=== PATIENT | male | born 1950 | race Two or more races ===

== ENCOUNTER 2018-02-08 20:03 | Inpatient (IN) | payer MEDICARE, BC ==
[~2018-02-08] VITALS: Ht 167.6 cm; Wt 71.7 kg
[2018-02-09 12:00] VITALS: BP 133/66
--- NOTE | 2018-02-09 12:00 | NUR ---
GPS/RN PATIENT ADMITTED ON A 5150 HOLD FOR DTS, UNDER THE CARE OF DR HENRIQUEZ AND DR JIMENEZ. BOTH DR'S AWARE OF NEW ADMISSION AND MEDS RECONCILED IN SYSTEM. PER HOLD PATIENT WALKED INTO THE [employer] [facility] AND ATTEMPTED TO LOAD A FIREARM AND ADMITTED HE WANTED TO KILL HIMSELF. UPON FACE TO FACE ASSESSMENT, PATIENT IS ALERT AND ORIENTED X 3, ANXIOUS WITH BLUNTED AFFECT AND DEPRESSED MOOD. PATIENT IS SELECTIVE WITH SIGNING ADMISSION PAPERWORK, VITAL SIGNS STABLE, PATIENT REFUSED SKIN ASSESSMENT AND REFUSED TO ALLOW STAFF TO TAKE PICTURE OF HIS FACE. PATIENT DENIES ANY SI/HI IDEATION AT THIS TIME. BELONGINGS, VALUABLES AND MEDICATION COLLECTED. AT THIS TIME PATIENT IS IN DINING ROOM ON A 1:1 STATUS, NO AGITATION NO MAJOR DISTRESS NOTED,ENCOURAGED TO VERBALIZE FEELINGS AND CONCERNS, WILL CONTINUE TO MONITOR Q 15 MIN FOR SAFETY AND BEHAVIOR. Addendum: 02/09/18 at 1854 by MCKINLEY ALBARADO RN PATIENT NOT ON A 1:1 AT THIS TIME.
[2018-02-09] MEDS ORDERED: MAG HYDROX/AL HYDROX/SIMETH 30 ML UDC PO PRN (12:30)
[2018-02-09] MEDS ORDERED: ACETAMINOPHEN 325 MG TABLET PO PRN (12:30)
[2018-02-09] MEDS ORDERED: LAMO100T2 PO (14:21)
[2018-02-09] MEDS ORDERED: FLUV50TA3 PO (14:21)
[2018-02-09] MEDS ORDERED: ROSU10TA PO (14:21)
[2018-02-09] MEDS ORDERED: OXCA300T15 PO ×2 (14:21)
[2018-02-09] MEDS ORDERED: LEVO75TA7 PO (14:21)
[2018-02-09] MEDS ORDERED: VENL75CA56 PO (14:21)
[2018-02-09] MEDS ORDERED: ALLO300T2 PO (14:21)
[2018-02-09] MEDS ORDERED: OMEP20TA5 PO (14:21)
[2018-02-09 15:53] VITALS: BP 119/69
[2018-02-09] MEDS: LamoTRIgine 25 MG TABLET PO SCH (17:55)
[2018-02-09 19:48] VITALS: BP 111/57
--- NOTE | 2018-02-09 20:12 | NUR ---
GPS RN NOTE: PATIENT VERBALIZED DEPRESSION AND SUICIDAL THOUGHT. ENCOURAGED TO VERBALIZE FEELING. PATIENT CONTRACTED TO SAFETY. WILL CONTINUE TO MONITOR [id number] FOR SAFETY
[2018-02-09] MEDS: FLUVOXAMINE MALEATE 50 MG TABLET PO SCH (21:19)
[2018-02-09] MEDS: OXCARBAZEPINE 150 MG TABLET PO SCH (21:20)
[2018-02-09] MEDS: ZOLPIDEM TARTRATE 5 MG TABLET PO PRN (21:21)
[2018-02-10] MEDS: LEVOTHYROXINE SODIUM 75 MCG TABLET PO SCH (07:55)
[2018-02-10] MEDS: LamoTRIgine 25 MG TABLET PO SCH (07:55)
[2018-02-10] MEDS: PANTOPRAZOLE 40 MG TABLET.DR PO SCH (07:55)
[2018-02-10] MEDS: OXCARBAZEPINE 150 MG TABLET PO SCH ×2 (07:57→20:38)
[2018-02-10 08:00] VITALS: BP 115/65
[2018-02-10 08:10] LABS: ALBUMIN 3.7 g/dL (3.4-5.0); BILIRUBIN,TOTAL 0.6 mg/dL (0.2-1.0); CALCIUM, SERUM 10.2 mg/dL (8.5-10.1); CREATININE 0.9 mg/dL (0.6-1.3); TOTAL PROTEIN, SERUM 6.7 g/dL (6.4-8.2)
[2018-02-10] MEDS: ALLOPURINOL 100 MG TABLET PO SCH (09:19)
--- NOTE | 2018-02-10 11:10 | NUR ---
GPS/RN PATIENT DENIES SI AT THIS TIME AND IS WILLING TO CONTRACT FOR SAFETY. SIGNED SAFETY CONTRACT. WILL CONTINUE TO MONITOR Q 15 MIN FOR SAFETY AND BEHAVIOR.
--- NOTE | 2018-02-10 13:52 | NUR ---
Initial Discharge Plan: Pt resides at [address] [place] [address] ([phone]) with his current . Per pt, he would like to go to a long term facility or an assisted living to receive more assistance. MISHEL will work with the pt, the family and the MD regarding appropriate discharge plans. SW will form a safe and proper discharge plan.
[2018-02-10] MEDS: MAGNESIUM HYDROXIDE 30 ML UDC PO PRN (14:51)
[2018-02-10 16:00] VITALS: BP 126/73
[2018-02-10 20:08] VITALS: BP 128/76
[2018-02-10] MEDS: FLUVOXAMINE MALEATE 50 MG TABLET PO SCH (21:35)
[2018-02-10] MEDS: ATORVASTATIN 10 MG TABLET PO SCH (21:36)
[2018-02-10] MEDS: ZOLPIDEM TARTRATE 5 MG TABLET PO PRN (21:37)
--- NOTE | 2018-02-10 21:38 | NUR ---
AMBIEN 5 MG TAB 1 PO GIVEN FOR SLEEP PER PATIENT'S REQUEST
[2018-02-11] MEDS: LORAZEPAM 0.5 MG TABLET PO PRN (06:00)
--- NOTE | 2018-02-11 06:00 | NUR ---
Ativan 1 mg tab po given for anxiety per patient's request.
[2018-02-11 08:00] VITALS: BP 133/68
[2018-02-11] MEDS: PANTOPRAZOLE 40 MG TABLET.DR PO SCH (08:02)
[2018-02-11] MEDS: ALLOPURINOL 100 MG TABLET PO SCH (08:02)
[2018-02-11] MEDS: LamoTRIgine 25 MG TABLET PO SCH (08:03)
[2018-02-11] MEDS: OXCARBAZEPINE 150 MG TABLET PO SCH ×2 (08:03→21:27)
[2018-02-11] MEDS: LEVOTHYROXINE SODIUM 75 MCG TABLET PO SCH (08:03)
--- NOTE | 2018-02-11 13:46 | NUR ---
SW spoke to Irasema ([phone]) regarding potential placement at [facility].
--- NOTE | 2018-02-11 13:52 | NUR ---
MISHEL spoke to pt's , Prema Mas, and informed her about the initial discharge plan and what his current status is like. Addendum: 02/24/18 at 1202 by ASHLIE FLORENTINO ([phone])
[2018-02-11 15:54] VITALS: BP 141/76
[2018-02-11] MEDS: MAGNESIUM HYDROXIDE 30 ML UDC PO PRN (17:55)
--- NOTE | 2018-02-11 17:56 | NUR ---
NURSING NOTE PT STATING HE IS CONSTIPATED, REQUESTED MOM, ADMINISTERED MOM PER PT REQUEST. WILL CONTINUE TO MONITOR.
[2018-02-11 20:25] VITALS: BP 152/75
[2018-02-11] MEDS: FLUVOXAMINE MALEATE 50 MG TABLET PO SCH (21:27)
[2018-02-11] MEDS: ATORVASTATIN 10 MG TABLET PO SCH (21:27)
[2018-02-12 08:16] VITALS: BP 145/84
[2018-02-12] MEDS: LEVOTHYROXINE SODIUM 75 MCG TABLET PO SCH (08:21)
[2018-02-12] MEDS: LamoTRIgine 25 MG TABLET PO SCH ×3 (08:21→10:12)
[2018-02-12] MEDS: PANTOPRAZOLE 40 MG TABLET.DR PO SCH (08:21)
[2018-02-12] MEDS: OXCARBAZEPINE 150 MG TABLET PO SCH ×2 (08:22→21:32)
[2018-02-12] MEDS: ALLOPURINOL 100 MG TABLET PO SCH (08:22)
[2018-02-12] MEDS: MAGNESIUM HYDROXIDE 30 ML UDC PO PRN (10:16)
--- NOTE | 2018-02-12 10:18 | NUR ---
GPS/RN PATIENT REQUESTED MOM FOR CONSTIPATION, ADMINISTERED MILK OF MAGNESIA, WILL CONTINUE TO MONITOR.
--- NOTE | 2018-02-12 13:00 | NUR ---
GPS/RN PATIENT FOUND IN ROOM BY ASSOCIATE MARKETING MANAGER WITH OVERHEAD LIGHT BULB IN HAND AND ON HIS KNEES. PATIENT NOTED WITH SELF INFLICTED SUPERFICIAL CUTS TO HIS NECK. RAPID RESPONSE CALLED TO UNIT, PATIENT IN STABLE CONDITION. CHARGE NURSE, APPLICATION SOFTWARE DEVELOPER, DR BADILLO, DR FUENTES AND PATIENTS WERE MADE AWARE OF THE INCIDENT. BACITRACIN WAS ORDERED AND SUPERFICIAL CUTS COVERED WITH 4X4. PER DR BADILLO, PATIENT IS NOW ON A 1:1 STATUS. WILL CONTINUE TO MONITOR Q 15 MIN FOR SAFETY AND BEHAVIOR. VITALS: 140/86, 77, 19, 100
--- NOTE | 2018-02-12 13:15 | NUR ---
GPS/RN DR BADILLO WAS NOTIFIED AND PROVIDED WITH DETAILS OF PATIENT'S SUICIDE ATTEMPT AND SELF INFLICTED SUPERFICIAL CUTS TO HIS NECK. PER DR BADILLO PATIENT IS TO BE PUT ON A 1:1 STATUS.
[2018-02-12 13:25] VITALS: BP 106/72
[2018-02-12 13:30] VITALS: BP 140/86
[2018-02-12] MEDS: BACI/NEOM/POLY B OINT PKT 1 UDPKT PACKET TP SCH ×2 (14:00→18:04)
--- NOTE | 2018-02-12 14:04 | NUR ---
GPS/RN PATIENT STATED THAT HE HAD A TETANUS SHOT LAST YEAR BUT HE DOES NOT RECALL WHAT MONTH.
--- NOTE | 2018-02-12 14:30 | NUR ---
GPS/RN PATIENT IN ROOM, CONTINUES TO BE ACTIVELY SUICIDAL. STATING " I SHOULD HAVE DONE IT HARDER, I WANT OT GO BACK AND DO IT OVER" . ENCOURAGED TO VERBALIZE FEELINGS AND CONCERNS, 1:1 SITTER AT SIDE, WILL CONTINUE TO MONITOR Q 15 MIN FOR SAFETY AND BEHAVIOR
[2018-02-12] MEDS: LORAZEPAM 0.5 MG TABLET PO PRN (14:51)
--- NOTE | 2018-02-12 14:52 | NUR ---
GPS/RN PATIENT IS EXTREMELY ANXIOUS, REPEATING HIMSELF OVER AND OVER, STATING" I WANT TO GO BACK, I WANT TO GO BACK" , ADMINISTERED ATIVAN 1 MG , SITTER AR SIDE, WILL CONTINUE TO MONITOR.
--- NOTE | 2018-02-12 15:00 | NUR ---
GPS/RN DR FUENTES MADE AWARE OF PATIENT'S SELF INFLICTED SUPERFICIAL CUTS TO THE NECK. NO NEW ORDERS AT THIS TIME.
--- NOTE | 2018-02-12 15:05 | NUR ---
GPS/RN PATIENT'S BISI GERARD WAS CONTACTED AND IS AWARE THAT PATIENT ATTEMPTED TO CUT HIS NECK WITH LIGHT BULB. Addendum: 02/12/18 at 1521 by MCKINLEY ALBARADO RN AWARE OF SELF INFLICTED SUPERFICIAL CUTS TO THE NECK.
[2018-02-12 16:00] VITALS: BP 136/69
[2018-02-12] MEDS: ESCITALOPRAM OXALATE (10 MG) 10 MG TABLET PO SCH (16:42)
--- NOTE | 2018-02-12 17:15 | NUR ---
GPS/RN PATIENT IS EXTREMELY ANXIOUS AND CONTINUES VOICING SUICIDAL IDEATION, STATING "IM GOING TO DO IT" "I WANT TO GO BACK AND FINISH IT". PAGED DR BADILLO TO OBTAIN ORDERS FOR EMERGENCY SHOT. AWAITING CALL BACK.SITTER AT SIDE, WILL CONTINUE TO MONITOR Q 15 MIN FOR SAFETY AND BEHAVIOR,
--- NOTE | 2018-02-12 18:20 | NUR ---
GPS/RN PICTURES TAKEN OF RIGHT AND LEFT SIDE OF PATIENTS NECK. PLACED IN CHART.
--- NOTE | 2018-02-12 19:30 | NUR ---
GPS RN NOTE, RECEIVED PATIENT AWAKE AND IN BED, NO S/S OR COMPLAINTS OF PAIN AT THIS TIME. PATIENT DISPLAYING NO S/S OF APPARENT DISTRESS AT THIS TIME. PATIENT BREATHING IS UNLABORED WITH EQUAL RISE AND FALL OF THE CHEST. PATIENT ALERT AND ORIENTED X 3 WITH A SPO2 94%. PATIENT HAS A ONE TO ONE SITTER FOR SI PLAN. PATIENT IS MED COMPLIANT, DISORGANIZED, DEPRESSED, ISOLATIVE, COOPERATIVE, NEEDS REORIENTATION. PATIENT DENIES SUICIDE IDEATIONS AND HOMICIDAL IDEATIONS AT THIS TIME. PATIENT ASSISTED WITH TURNING AND REPOSITIONING Q2HR AND PRN FOR COMFORT AND CIRCULATION. PATIENT HAS NO NEEDS AT THIS TIME. PATIENT EDUCATED ON THE USE OF THE CALL SY. PATIENT BED SIDE RAILS UP X2 FOR SAFETY, BED IS LOCKED AND LOW WILL CONTINUE TO MONITOR AND MAINTAIN AND MAINTAIN SAFETY.
[2018-02-12 20:31] VITALS: BP 135/71
[2018-02-12] MEDS: ATORVASTATIN 10 MG TABLET PO SCH (21:32)
[2018-02-12] MEDS: QUETIAPINE FUMARATE 100 MG TABLET PO SCH (21:32)
[2018-02-13 08:00] VITALS: BP 137/70
[2018-02-13] MEDS: ESCITALOPRAM OXALATE (10 MG) 10 MG TABLET PO SCH (08:29)
[2018-02-13] MEDS: LEVOTHYROXINE SODIUM 75 MCG TABLET PO SCH (08:29)
[2018-02-13] MEDS: ALLOPURINOL 100 MG TABLET PO SCH (08:30)
[2018-02-13] MEDS: LamoTRIgine 25 MG TABLET PO SCH (08:31)
[2018-02-13] MEDS: PANTOPRAZOLE 40 MG TABLET.DR PO SCH (08:33)
[2018-02-13] MEDS: OXCARBAZEPINE 150 MG TABLET PO SCH ×2 (08:33→21:09)
--- NOTE | 2018-02-13 11:00 | NUR ---
gps avionics systems integration specialist: psychotherapist dr. ashley dominguez at bedside. pt verbalized suicidal ideation. sitter at bedside. will continue to monitor.
[2018-02-13] MEDS: BACI/NEOM/POLY B OINT PKT 1 UDPKT PACKET TP SCH ×2 (11:09→17:00)
[2018-02-13] MEDS: LORAZEPAM 0.5 MG TABLET PO PRN (11:09)
--- NOTE | 2018-02-13 13:30 | NUR ---
SW spoke to Mora ([phone]) from [facility] which stated that they will be accepting the pt upon his discharge.
[2018-02-13 15:55] VITALS: BP 146/81
[2018-02-13 19:59] VITALS: BP 139/74
[2018-02-13] MEDS: QUETIAPINE FUMARATE 100 MG TABLET PO SCH (21:09)
[2018-02-13] MEDS: ATORVASTATIN 10 MG TABLET PO SCH (21:09)
--- NOTE | 2018-02-14 07:15 | NUR ---
GPS NOTE. PT SEEN PICKING AT WOUND SITE. PER PT. HE WAS MAKING SURE THAT HE DOESN'T MISS NEXT TIME. PT. IS ALERT ORIENTED X3, WITH LIMITED EYE CONTACT. CLEAR SPEECH. DEPRESSED MOOD WITH FLAT AFFECT. ENDORSE SI WITH PLAN. DENIED HI. NO NEW WOUNDS NOTED TO THE PATIENT NECK AREA. THE PATIENT WAS ABLE TO CONTRACT FOR SAFETY. WILL CONTINUE TO MONITOR FOR SAFETY.
[2018-02-14 08:00] VITALS: BP 122/73
[2018-02-14] MEDS ORDERED: LamoTRIgine 100 MG TABLET PO SCH (09:00)
[2018-02-14] MEDS: ALLOPURINOL 100 MG TABLET PO SCH (09:33)
[2018-02-14] MEDS: OXCARBAZEPINE 150 MG TABLET PO SCH ×2 (09:33→21:31)
[2018-02-14] MEDS: PANTOPRAZOLE 40 MG TABLET.DR PO SCH (09:33)
[2018-02-14] MEDS: BACI/NEOM/POLY B OINT PKT 1 UDPKT PACKET TP SCH ×2 (09:33→17:20)
[2018-02-14] MEDS: LEVOTHYROXINE SODIUM 75 MCG TABLET PO SCH (09:33)
[2018-02-14] MEDS: ESCITALOPRAM OXALATE (10 MG) 10 MG TABLET PO SCH (10:11)
[2018-02-14] MEDS: LORAZEPAM 0.5 MG TABLET PO PRN (10:11)
[2018-02-14] MEDS: LamoTRIgine 100 MG TABLET PO SCH (10:40)
--- NOTE | 2018-02-14 14:30 | NUR ---
PT.SEVERAL TIMES TALKING ABOUT DOING A BETTER JOB NEXT TIME.SITTER AT BEDSIDE CONTINUALLY.
[2018-02-14 16:00] VITALS: BP 149/64
[2018-02-14] MEDS: MAGNESIUM HYDROXIDE 30 ML UDC PO PRN (18:43)
--- NOTE | 2018-02-14 18:59 | NUR ---
MED. FOR CONSTIPATION WITH MOM.
[2018-02-14 20:00] VITALS: BP 125/73
[2018-02-14] MEDS: ATORVASTATIN 10 MG TABLET PO SCH (21:30)
[2018-02-14] MEDS ORDERED: QUETIAPINE FUMARATE 100 MG TABLET PO SCH (22:00)
--- NOTE | 2018-02-15 00:29 | NUR ---
Pt has been selectively mute mostly, anhedonic, withdrawn, unkempt, & with flat affect but fair insight. He is being closely monitored on a 1:1 basis due to self inflicted cuts recently.
[2018-02-15 08:00] VITALS: BP 123/79
[2018-02-15] MEDS: LORAZEPAM 0.5 MG TABLET PO PRN ×2 (08:49→17:05)
[2018-02-15] MEDS: LEVOTHYROXINE SODIUM 75 MCG TABLET PO SCH (08:49)
[2018-02-15] MEDS: PANTOPRAZOLE 40 MG TABLET.DR PO SCH (08:49)
[2018-02-15] MEDS: LamoTRIgine 100 MG TABLET PO SCH (08:49)
[2018-02-15] MEDS: ESCITALOPRAM OXALATE (10 MG) 10 MG TABLET PO SCH (08:50)
[2018-02-15] MEDS: ALLOPURINOL 100 MG TABLET PO SCH (08:50)
[2018-02-15] MEDS: OXCARBAZEPINE 150 MG TABLET PO SCH ×2 (08:50→21:02)
[2018-02-15] MEDS: BACI/NEOM/POLY B OINT PKT 1 UDPKT PACKET TP SCH ×2 (09:02→16:09)
[2018-02-15 16:07] VITALS: BP 128/79
[2018-02-15 19:57] VITALS: BP 130/73
[2018-02-15] MEDS: ATORVASTATIN 10 MG TABLET PO SCH (21:02)
[2018-02-15] MEDS: QUETIAPINE FUMARATE 100 MG TABLET PO SCH (21:24)
[2018-02-16 08:00] VITALS: BP 117/75
[2018-02-16] MEDS: ALLOPURINOL 100 MG TABLET PO SCH (09:08)
[2018-02-16] MEDS: OXCARBAZEPINE 150 MG TABLET PO SCH ×2 (09:08→21:07)
[2018-02-16] MEDS: LamoTRIgine 100 MG TABLET PO SCH (09:09)
[2018-02-16] MEDS: PANTOPRAZOLE 40 MG TABLET.DR PO SCH (09:09)
[2018-02-16] MEDS: LEVOTHYROXINE SODIUM 75 MCG TABLET PO SCH (09:09)
[2018-02-16] MEDS: BACI/NEOM/POLY B OINT PKT 1 UDPKT PACKET TP SCH (09:10)
--- NOTE | 2018-02-16 09:50 | NUR ---
WOUND CARE CONSULT: PT PRESENTS WITH DRY SCRATCHES ON NECK. NO DRAINAGE OR TENDERNESS NOTED. PT HAS WIGGINS. PT ALSO STATES HAS ACNE ON HIS BACK. DEFER TO MD. WILL SEE PRN. CURRENT [facility]AN [facility] SCORE IS 22.
[2018-02-16] MEDS: ESCITALOPRAM OXALATE (10 MG) 10 MG TABLET PO SCH (11:10)
[2018-02-16] MEDS: LORAZEPAM 1 MG TABLET PO PRN ×2 (11:49→21:41)
--- NOTE | 2018-02-16 11:49 | NUR ---
RN NOTES ADMINISTERED ATIVAN 1 MG PO PRN FOR ANXIETY, VERY DEPRESS, ISOLATIVE. PATIENT COMPLAINING OF NO ENERGY, LYING IN THE BED, PATIENT REFUSED SI AT THIS TIME, 1:1 SITTER NEXT TO THE BED FOR SAFETY, CONTINUED MONITORING.
--- NOTE | 2018-02-16 12:44 | NUR ---
RN NOTES PATIENT VERY ANXIOUS, PARANOID, AGGRESSIVE, YELLING. MEDICATION WERE ADMINISTERED FOR ANXIETY NOT EFFECTIVE. PATIENT WAS YELLING, TRYING TO THROUGH CHAIR TO THE WINDOW. CALLED DR BADILLO AND GET ORDER ZYPREXA 10 MG/ML IM X1 NOW, ORDER TAKEN AND CARRIED OUT.
[2018-02-16] MEDS ORDERED: OLANZAPINE 10 MG VIAL IM ONE (13:00)
--- NOTE | 2018-02-16 13:05 | NUR ---
RN NOTES ADMINISTERED ZYPREXA 10 MG/ML IM INJECTION RIGHT OUTER GLUTEAL AREA. PER DR BADILLO ORDER. ENCOURAGED PATIENT TO EXPRESS FEELINGS AND CONCERNS. PATIENT STAE " MY MIND IS FOCUSED ONE THING GO AND FINISH CUTTING MY SELF, I CAN NOT GET READ OF IT, I AM SICK AND TIERED". CALL SY NEAR TO REACH, 1:1 SITTER NEXT TO THE BED FOR SAFETY.
--- NOTE | 2018-02-16 14:14 | NUR ---
RN NOTES PATIENT RESTING IN THE BED AT THIS TIME, QUIET, NO ACUTE DISTRESS, BUT STILL ISOLATIVE, ENCOURAGED TO ATTEND GROUP THERAPY. SAFETY PRECAUTION MAINTAINED ALL THE TIME WITH 1:1 SITTER.
[2018-02-16 16:00] VITALS: BP 128/68
[2018-02-16] MEDS: NEOMY SULF/BACITRAC ZN/POLY 15 GM TUBE TP SCH (17:30)
[2018-02-16 19:40] VITALS: BP 101/41
[2018-02-16] MEDS: ATORVASTATIN 10 MG TABLET PO SCH (21:08)
[2018-02-16] MEDS: QUETIAPINE FUMARATE 100 MG TABLET PO SCH (21:08)
--- NOTE | 2018-02-16 21:48 | NUR ---
GPS-RN PATIENT IS ANXIOUS AND RESTLESS, VSS. ADMINISTERED ATIVAN 1MG PO ORDERED. WILL CONTINUE TO MONITOR.
[2018-02-17 08:00] VITALS: BP 117/65
[2018-02-17] MEDS: LEVOTHYROXINE SODIUM 75 MCG TABLET PO SCH (08:48)
[2018-02-17] MEDS: PANTOPRAZOLE 40 MG TABLET.DR PO SCH (08:48)
[2018-02-17] MEDS: OXCARBAZEPINE 150 MG TABLET PO SCH ×2 (08:48→21:33)
[2018-02-17] MEDS: ESCITALOPRAM OXALATE (10 MG) 10 MG TABLET PO SCH (08:48)
[2018-02-17] MEDS: ALLOPURINOL 100 MG TABLET PO SCH (08:48)
[2018-02-17] MEDS: LamoTRIgine 100 MG TABLET PO SCH (08:48)
[2018-02-17] MEDS: NEOMY SULF/BACITRAC ZN/POLY 15 GM TUBE TP SCH ×3 (08:52→17:00)
[2018-02-17 16:00] VITALS: BP 136/66
[2018-02-17] MEDS: QUETIAPINE FUMARATE 25 MG TABLET PO SCH (16:21)
[2018-02-17 20:33] VITALS: BP 118/66
[2018-02-17] MEDS: ATORVASTATIN 10 MG TABLET PO SCH (21:32)
[2018-02-17] MEDS: QUETIAPINE FUMARATE 100 MG TABLET PO SCH (21:32)
--- NOTE | 2018-02-17 22:08 | NUR ---
GPS NOTES. PT. LAYING IN BED, RESTING COMFORTABLY. NO SIGNS OF DISTRESS NOTED. PER DR. GABINO DINERO CHECK PT. VS UNTIL TOMORROW MORNING. Addendum: 02/17/18 at 2222 by NEAL ROSS RN WRONG PATIENT. DISREGARD
[2018-02-18 08:00] VITALS: BP 114/66
[2018-02-18] MEDS: LamoTRIgine 100 MG TABLET PO SCH (09:02)
[2018-02-18] MEDS: ESCITALOPRAM OXALATE (10 MG) 10 MG TABLET PO SCH (09:02)
[2018-02-18] MEDS: PANTOPRAZOLE 40 MG TABLET.DR PO SCH (09:03)
[2018-02-18] MEDS: NEOMY SULF/BACITRAC ZN/POLY 15 GM TUBE TP SCH ×2 (09:03→16:41)
[2018-02-18] MEDS: LEVOTHYROXINE SODIUM 75 MCG TABLET PO SCH (09:03)
[2018-02-18] MEDS: OXCARBAZEPINE 150 MG TABLET PO SCH ×2 (09:03→21:30)
[2018-02-18] MEDS: QUETIAPINE FUMARATE 25 MG TABLET PO SCH ×2 (09:03→16:41)
[2018-02-18] MEDS: ALLOPURINOL 100 MG TABLET PO SCH (09:03)
[2018-02-18 16:00] VITALS: BP 124/70
[2018-02-18] MEDS: LORAZEPAM 1 MG TABLET PO PRN (18:24)
[2018-02-18 20:21] VITALS: BP 139/74
[2018-02-18] MEDS: QUETIAPINE FUMARATE 100 MG TABLET PO SCH (21:30)
[2018-02-18] MEDS: ATORVASTATIN 10 MG TABLET PO SCH (21:30)
[2018-02-18] MEDS: MAGNESIUM HYDROXIDE 30 ML UDC PO PRN (22:09)
[2018-02-19 08:00] VITALS: BP 135/72
[2018-02-19] MEDS: ALLOPURINOL 100 MG TABLET PO SCH (08:28)
[2018-02-19] MEDS: PANTOPRAZOLE 40 MG TABLET.DR PO SCH (08:29)
[2018-02-19] MEDS: QUETIAPINE FUMARATE 25 MG TABLET PO SCH ×3 (08:29→16:36)
[2018-02-19] MEDS: OXCARBAZEPINE 150 MG TABLET PO SCH ×2 (08:29→20:33)
[2018-02-19] MEDS: LamoTRIgine 100 MG TABLET PO SCH (08:29)
[2018-02-19] MEDS: ESCITALOPRAM OXALATE (10 MG) 10 MG TABLET PO SCH (08:29)
[2018-02-19] MEDS: LEVOTHYROXINE SODIUM 75 MCG TABLET PO SCH (08:29)
[2018-02-19] MEDS: NEOMY SULF/BACITRAC ZN/POLY 15 GM TUBE TP SCH ×2 (09:00→17:51)
[2018-02-19] MEDS: LORAZEPAM 1 MG TABLET PO PRN (12:52)
[2018-02-19] MEDS: MAGNESIUM HYDROXIDE 30 ML UDC PO PRN (12:52)
--- NOTE | 2018-02-19 12:58 | NUR ---
GPS/RN PATIENT IS ANXIOUS, RESTLESS AND AGITATED WITH DEPRESSED MOOD, ADMINISTERED ATIVAN 1MG , WILL CONTINUE TO MONITOR.
[2018-02-19 16:11] VITALS: BP 117/71
[2018-02-19 20:00] VITALS: BP 127/67
[2018-02-19] MEDS: QUETIAPINE FUMARATE 100 MG TABLET PO SCH (21:09)
[2018-02-19] MEDS: ATORVASTATIN 10 MG TABLET PO SCH (21:09)
[2018-02-20] MEDS: LEVOTHYROXINE SODIUM 75 MCG TABLET PO SCH (07:25)
[2018-02-20] MEDS: PANTOPRAZOLE 40 MG TABLET.DR PO SCH (07:26)
[2018-02-20 08:27] VITALS: BP 114/69
[2018-02-20] MEDS: LamoTRIgine 100 MG TABLET PO SCH (08:37)
[2018-02-20] MEDS: ESCITALOPRAM OXALATE (10 MG) 10 MG TABLET PO SCH (08:37)
[2018-02-20] MEDS: OXCARBAZEPINE 150 MG TABLET PO SCH ×2 (08:37→20:54)
[2018-02-20] MEDS: NEOMY SULF/BACITRAC ZN/POLY 15 GM TUBE TP SCH ×2 (08:38→16:07)
[2018-02-20] MEDS: ALLOPURINOL 100 MG TABLET PO SCH (08:38)
[2018-02-20] MEDS: QUETIAPINE FUMARATE 25 MG TABLET PO SCH ×3 (08:38→16:07)
[2018-02-20] MEDS: LORAZEPAM 1 MG TABLET PO PRN (09:43)
[2018-02-20] MEDS: DOCUSATE SODIUM 100 MG CAPSULE PO SCH (11:06)
[2018-02-20 16:21] VITALS: BP 135/66
[2018-02-20 20:00] VITALS: BP 130/73
[2018-02-20] MEDS: QUETIAPINE FUMARATE 100 MG TABLET PO SCH (21:08)
[2018-02-20] MEDS: ATORVASTATIN 10 MG TABLET PO SCH (21:08)
[2018-02-20] MEDS: SENNOSIDES/DOCUSATE SODIUM 1 TAB TABLET PO SCH (22:00)
--- NOTE | 2018-02-21 07:03 | NUR ---
PATIENT QUIET AND CALM THE WHOLE SHIFT LAST NIGHT
[2018-02-21 08:00] VITALS: BP 118/69
[2018-02-21] MEDS: DOCUSATE SODIUM 100 MG CAPSULE PO SCH (08:21)
[2018-02-21] MEDS: LEVOTHYROXINE SODIUM 75 MCG TABLET PO SCH (08:21)
[2018-02-21] MEDS: PANTOPRAZOLE 40 MG TABLET.DR PO SCH (08:21)
[2018-02-21] MEDS: ESCITALOPRAM OXALATE (10 MG) 10 MG TABLET PO SCH (08:21)
[2018-02-21] MEDS: QUETIAPINE FUMARATE 25 MG TABLET PO SCH ×3 (08:21→16:12)
[2018-02-21] MEDS: OXCARBAZEPINE 150 MG TABLET PO SCH ×2 (08:22→21:32)
[2018-02-21] MEDS: LamoTRIgine 100 MG TABLET PO SCH (08:22)
[2018-02-21] MEDS: ALLOPURINOL 100 MG TABLET PO SCH (08:22)
[2018-02-21] MEDS: NEOMY SULF/BACITRAC ZN/POLY 15 GM TUBE TP SCH ×2 (09:22→16:13)
[2018-02-21] MEDS: LORAZEPAM 1 MG TABLET PO PRN (15:40)
--- NOTE | 2018-02-21 15:44 | NUR ---
GPS/RN-NOTES PATIENT REQUESTING FOR ATIVAN,STATED" I'M VERY ANXIOUS I NEED ATIVAN". ATIVAN 1MG P.O GIVEN PRN ORDER. WILL CONT. 1:1 MONITORING FOR SAFETY AND BEHAVIOR.
[2018-02-21 16:11] VITALS: BP 117/68
--- NOTE | 2018-02-21 16:45 | NUR ---
GPS/RN-NOTES PATIENT LAYING IN HIS BED, CALM , INTERMITTENTLY SLEEPING. STILL ON 1:1 MONITORING FOR SAFETY AND BEHAVIOR.
[2018-02-21 20:00] VITALS: BP 140/68
[2018-02-21] MEDS: QUETIAPINE FUMARATE 100 MG TABLET PO SCH (21:32)
[2018-02-21] MEDS: SENNOSIDES/DOCUSATE SODIUM 1 TAB TABLET PO SCH (21:33)
[2018-02-21] MEDS: ATORVASTATIN 10 MG TABLET PO SCH (21:33)
--- NOTE | 2018-02-22 01:11 | NUR ---
Pt remains selectively mute mostly, anhedonic, withdrawn, unkempt, & with flat affect but fair insight. He is being closely monitored on a 1:1 basis due to suicidal urges .
[2018-02-22 08:00] VITALS: BP 113/65
[2018-02-22] MEDS: LamoTRIgine 100 MG TABLET PO SCH (08:54)
[2018-02-22] MEDS: DOCUSATE SODIUM 100 MG CAPSULE PO SCH (08:54)
[2018-02-22] MEDS: OXCARBAZEPINE 150 MG TABLET PO SCH ×2 (08:54→20:12)
[2018-02-22] MEDS: QUETIAPINE FUMARATE 25 MG TABLET PO SCH ×3 (08:55→17:12)
[2018-02-22] MEDS: LEVOTHYROXINE SODIUM 75 MCG TABLET PO SCH (08:55)
[2018-02-22] MEDS: PANTOPRAZOLE 40 MG TABLET.DR PO SCH (08:55)
[2018-02-22] MEDS: ESCITALOPRAM OXALATE (10 MG) 10 MG TABLET PO SCH (08:55)
[2018-02-22] MEDS: ALLOPURINOL 100 MG TABLET PO SCH (09:01)
[2018-02-22] MEDS: NEOMY SULF/BACITRAC ZN/POLY 15 GM TUBE TP SCH ×2 (09:19→16:20)
--- NOTE | 2018-02-22 09:51 | NUR ---
GPS RN NOTE: PT. REMAINS DISHEVELED, ANXIOUS AND DEPRESSED AND ENDORSES SUICIDAL IDEATION BUT NO PLAN AND CONTRACTED FOR SAFETY. PT WAS MED COMPLIANT AND REQUESTED TIME TO TALK THEN EXPRESSED HOPELESSNESS ABOUT HIS MARITAL DIFFICULTIES BUT IS FOCUSED ON TRYING TO FIND THE ANSWERS. COPING MECHANISMS AND RELAXATION DISCUSSED, PATIENT STATED HE WILL VERBALIZE ANY INCREASE IN HIS ANXIETY OR IF HE HAS THOUGHTS TO HARM HIMSELF. WITH 1:1 SITTER IN TV ROOM AT THIS TIME WITHOUT ANY APPARENT DISTRESS.
--- NOTE | 2018-02-22 15:10 | NUR ---
GPS RN NOTE: HAS BEEN WATCHING SPORTS ON TV AND EATING SNACKS, REFUSING SHOWER TODAY. BECAME ANXIOUS AGAIN AND SOUGHT STAFF TO WALK AND TALK ABOUT HIS FEELINGS OF BEING OVERWHELMED ABOUT HOW TO TAKE CARE OF HIMSELF WHEN HE LEAVES. REFUSES PRN ATIVAN STATING WANTS TO LET HIS MEDICATIONS WORK WITHOUT IT. ENCOURAGED TO VERBALIZE, CONTRACTED AGAIN FOR SAFETY, NO PLAN TO HARM SELF TODAY. BREATHING AND RELAXATION AND HELPED FOCUS ON JUST TODAY GOALS OF COPING. PATIENT CALMED AND RETURNED TO TV ROOM WITHOUT DISTRESS.
[2018-02-22 16:07] VITALS: BP 133/74
[2018-02-22 20:06] VITALS: BP 133/75
[2018-02-22] MEDS: SENNOSIDES/DOCUSATE SODIUM 1 TAB TABLET PO SCH (21:47)
[2018-02-22] MEDS: QUETIAPINE FUMARATE 100 MG TABLET PO SCH (21:47)
[2018-02-22] MEDS: ATORVASTATIN 10 MG TABLET PO SCH (21:47)
--- NOTE | 2018-02-23 06:52 | NUR ---
PT REFUSED PHOTOS PT REFUSED TO HAVE PHOTOS TAKEN OF HIS SKIN ON A PHOTO DAY DESPITE OF EXPLANATIONS. ATTEMPTED X 3 BUT HE CONTINUED TO REFUSE.
--- NOTE | 2018-02-23 06:56 | NUR ---
PATIENT REFUSED SKIN ASSESSMENT AND PHOTO TAKEN
[2018-02-23 08:00] VITALS: BP 113/67
[2018-02-23] MEDS: LEVOTHYROXINE SODIUM 75 MCG TABLET PO SCH (08:02)
[2018-02-23] MEDS: OXCARBAZEPINE 150 MG TABLET PO SCH ×2 (08:02→20:57)
[2018-02-23] MEDS: ALLOPURINOL 100 MG TABLET PO SCH (08:02)
[2018-02-23] MEDS: DOCUSATE SODIUM 100 MG CAPSULE PO SCH (08:03)
[2018-02-23] MEDS: LamoTRIgine 100 MG TABLET PO SCH (08:03)
[2018-02-23] MEDS: QUETIAPINE FUMARATE 25 MG TABLET PO SCH ×3 (08:04→17:01)
[2018-02-23] MEDS: PANTOPRAZOLE 40 MG TABLET.DR PO SCH (08:04)
[2018-02-23] MEDS: ESCITALOPRAM OXALATE (10 MG) 10 MG TABLET PO SCH (08:04)
[2018-02-23] MEDS: NEOMY SULF/BACITRAC ZN/POLY 15 GM TUBE TP SCH ×2 (08:08→17:01)
--- NOTE | 2018-02-23 09:00 | NUR ---
GPS RN NOTE: RECEIVED PATIENT AWAKE AND SITTING IN BED ALERT AND ORIENTED X 3. PT WAS ESCORTED TO TV ROOM AND ATE FULL BREAKFAST, WAS MED COMPLIANT. NO S/S OR COMPLAINTS OF PAIN AT THIS TIME. PATIENT DISPLAYING NO S/S OF APPARENT DISTRESS AT THIS TIME. PT STATES IS ANXIOUS ABOUT LEAVING BECAUSE HE IS AFRAID OF EVER WANTING TO HURT HIMSELF AGAIN. HE WOULD RATHER TALK ABOUT HIS CONCERNS RATHER THAN TAKE ATIVAN PRN AT THIS TIME. HE ENDORSES VAGUE SI, HIS FEAR OF HOW HE WANTED TO KILL HIMSELF, DENIES HI. EDUCATED PATIENT ABOUT COPING MECHANISMS AND ABOUT HIS MEDICATIONS. PATIENT IS AMBULATORY AND HAS NO OTHER NEEDS AT THIS TIME. 1:1 FOR SAFETY.
--- NOTE | 2018-02-23 11:40 | NUR ---
MISHEL spoke to Mora ([phone]) from [facility] and informed her that the pt would be discharging on Friday.
[2018-02-23] MEDS: ARIPIPRAZOLE 5 MG TABLET PO SCH (13:05)
[2018-02-23 16:00] VITALS: BP 137/77
[2018-02-23] MEDS: LORAZEPAM 1 MG TABLET PO PRN (16:40)
[2018-02-23 20:19] VITALS: BP 135/70
[2018-02-23] MEDS: SENNOSIDES/DOCUSATE SODIUM 1 TAB TABLET PO SCH (20:56)
[2018-02-23] MEDS: QUETIAPINE FUMARATE 100 MG TABLET PO SCH (20:57)
[2018-02-23] MEDS: ATORVASTATIN 10 MG TABLET PO SCH (20:57)
[2018-02-24 07:14] LABS: BASOPHILS % (AUTO) 0.4 % (0.0-2.0); EOSINOPHILS % (AUTO) 1.8 % (0.0-6.0); HEMATOCRIT 40 % (39-51); HEMOGLOBIN 13.6 g/dL (13.5-17.5); LYMPHOCYTES # (AUTO) 2.9 /CMM (0.8-4.8); LYMPHOCYTES % (AUTO) 33.5 % (20.0-44.0); MEAN CORPUSCULAR HGB CONC 34 g/dl (31.0-36.0); MEAN CORPUSCULAR VOLUME 92 fL (80-96); MONOCYTES # (AUTO) 0.5 /CMM (0.1-1.30); MONOCYTES % (AUTO) 5.6 % (2.0-12.0); NEUTROPHILS # (AUTO) 5.1 /CMM (1.8-8.9); NEUTROPHILS % (AUTO) 58.7 % (43.0-81.0); PLATELET COUNT (AUTO) 271 /CMM (150-450); RDW COEFFICIENT OF VARIATION 12.3 (11.5-15.0); RED BLOOD CELL COUNT(AUTO) 4.32 MIL/uL (4.5-6.0); WHITE BLOOD COUNT (AUTO) 8.6 K/uL (4.3-11.0)
[2018-02-24 07:23] LABS: CALCIUM, SERUM 10.6 mg/dL (8.5-10.1); POTASSIUM 4.3 mmol/L (3.5-5.1)
[2018-02-24 08:10] VITALS: BP 108/60
[2018-02-24] MEDS: PANTOPRAZOLE 40 MG TABLET.DR PO SCH (09:03)
[2018-02-24] MEDS: QUETIAPINE FUMARATE 25 MG TABLET PO SCH ×3 (09:03→17:49)
[2018-02-24] MEDS: LamoTRIgine 100 MG TABLET PO SCH (09:03)
[2018-02-24] MEDS: LEVOTHYROXINE SODIUM 75 MCG TABLET PO SCH (09:04)
[2018-02-24] MEDS: ALLOPURINOL 100 MG TABLET PO SCH (09:04)
[2018-02-24] MEDS: OXCARBAZEPINE 150 MG TABLET PO SCH ×2 (09:04→20:36)
[2018-02-24] MEDS: ARIPIPRAZOLE 5 MG TABLET PO SCH (09:04)
[2018-02-24] MEDS: DOCUSATE SODIUM 100 MG CAPSULE PO SCH (09:04)
[2018-02-24] MEDS: ESCITALOPRAM OXALATE (10 MG) 10 MG TABLET PO SCH (09:05)
[2018-02-24] MEDS: NEOMY SULF/BACITRAC ZN/POLY 15 GM TUBE TP SCH ×2 (09:06→17:49)
--- NOTE | 2018-02-24 12:06 | NUR ---
MISHEL spoke to Mora ([phone]) from [facility] to confirm that the pt will be discharging tomorrow. The pt will be in 5B and will have Dr. Mendez as his psychiatrist and Dr. Godoy as his nib inspector.
--- NOTE | 2018-02-24 14:16 | NUR ---
WHEN QUESTIONED PT. STATES DOES NOT FEEL LIKE HARMING HIMSELF HERE,BUT NOT SO SURE ABOUT WHEN HE LEAVES,SAYS HE FEELS SUICIDAL WHEN HE THINKS ABOUT LIVING IN HIS HOUSE.
[2018-02-24 16:33] VITALS: BP 100/60
--- NOTE | 2018-02-24 18:25 | NUR ---
NO CHANGE IN STATUS.
--- NOTE | 2018-02-24 20:20 | NUR ---
ASKED PATIENT IF HE HAS PLAN TO HURT HIMSELF, STATED," NOT NOW." ASKED HIM AGAIN WHAT HE MEANT BY NOT NOW, HE STATED," I DON'T KNOW." WILL CONTINUE TO MONITOR FOR SAFETY AND BEHAVIOR. 1:1 SITTER AT THE BEDSIDE TO MONITOR Q 15 MINS. FOR SAFETY.
[2018-02-24 20:28] VITALS: BP 120/63
[2018-02-24] MEDS: QUETIAPINE FUMARATE 100 MG TABLET PO SCH (21:15)
[2018-02-24] MEDS: ATORVASTATIN 10 MG TABLET PO SCH (21:15)
[2018-02-24] MEDS: SENNOSIDES/DOCUSATE SODIUM 1 TAB TABLET PO SCH (21:15)
[2018-02-25 08:23] VITALS: BP 134/77
[2018-02-25] MEDS: OXCARBAZEPINE 150 MG TABLET PO SCH (08:49)
[2018-02-25] MEDS: PANTOPRAZOLE 40 MG TABLET.DR PO SCH (08:49)
[2018-02-25] MEDS: DOCUSATE SODIUM 100 MG CAPSULE PO SCH (08:50)
[2018-02-25] MEDS: QUETIAPINE FUMARATE 25 MG TABLET PO SCH ×2 (08:50→12:17)
[2018-02-25] MEDS: ESCITALOPRAM OXALATE (10 MG) 10 MG TABLET PO SCH (08:50)
[2018-02-25] MEDS: LamoTRIgine 100 MG TABLET PO SCH (08:50)
[2018-02-25] MEDS: NEOMY SULF/BACITRAC ZN/POLY 15 GM TUBE TP SCH (08:50)
[2018-02-25] MEDS: ALLOPURINOL 100 MG TABLET PO SCH (08:50)
[2018-02-25] MEDS: LEVOTHYROXINE SODIUM 75 MCG TABLET PO SCH (08:50)
[2018-02-25] MEDS: LORAZEPAM 1 MG TABLET PO PRN (09:40)
--- NOTE | 2018-02-25 11:41 | NUR ---
SW spoke to pt's , Prema Mas ([phone]), and informed her that the pt is being discharged to [facility] today around noon and provided her with information about the facility.
--- NOTE | 2018-02-25 12:51 | NUR ---
DISCHARGE NOTE: PATIENT LEFT THE UNIT AT 1250 WITH AMBULANCE. PATIENT DISCHARGE TO [facility]. PATIENT IS ALERT AND ORIENTED X 3/4. MEDICALLY STABLE. DENIES SI/HI AT TIME OF DISCHARGE. ABY VERIFIED WITH PATIENT ABOUT SI/HI AND CONFIRMED DISCHARGE ORDER, DISCONTINUED HOLD, AND GAVE PRESCRIPTION. SOFY MADE AWARE OF DISCHARGE AND AGREES. PATIENT REFUSED SKIN ASSESSMENT UPON DISCHARGE. BELONGINGS NOTED AND LEFT WITH PATIENT. PATIENT SIGNED EXIT CARE PAPERS AND WAS EXPLAINED TO ABOUT PAPERS.
--- NOTE | 2018-02-25 13:40 | NUR ---
Discharge Note: Pt was discharged to [facility] located at [address] [facility] [address] [facility], [place] [address] ([phone]). Pt was transported via [facility] (Trip #[id number]) at 12pm and will be going to Bed 5B. Both the pt and the pts , Prema Mas ([phone]), are aware and approve of this placement. Pt denied suicidal and homicidal ideation as well as visual and auditory hallucinations. Pts mood and affect were calm and euthymic upon discharge. The pt will be under the care of psychiatrist Dr. Kamilah Mendez who is located at [address] [address], [place] [address]; ) and his manufacture specialist is Dr. Godoy who is located at [address], [place] [address]; ).
== END 2018-02-25 17:06 | DRG 885 ==
LOC: GPS 02-09 11:45
PROVIDERS: ADMIT Psychiatry & Neurology Psychiatry; ATTEND Internal Medicine
DX: F31.30 Bipolar disorder, current episode depressed, mild or moderate severity, unspecified (principal); F23 Brief psychotic disorder; F60.7 Dependent personality disorder; F60.89 Other specific personality disorders; E78.5 Hyperlipidemia, unspecified; M10.9 Gout, unspecified; E03.9 Hypothyroidism, unspecified; F41.9 Anxiety disorder, unspecified; T14.91XA Suicide attempt, initial encounter; X78.0XXA Intentional self-harm by sharp glass, initial encounter; Y92.230 Patient room in hospital as the place of occurrence of the external cause; S11.91XA Laceration without foreign body of unspecified part of neck, initial encounter; R73.9 Hyperglycemia, unspecified
CPT/HCPCS: 36415; 80048-TC; 80053-TC; 80061-TC; 85025-TC; 87081-TC; A6402; J3490